=== PATIENT | female | born 1980 | race Caucasian/White ===

== ENCOUNTER 2023-04-10 15:22 | Emergency (ER) | payer OTHER, SELFPAY ==
[2023-04-10 15:29] VITALS: BP 144/69; PULSE 100; RESP 20; TEMP 36.9; O2SAT 99; BMI 29.5
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
[2023-04-10 16:19] LABS: HCG Qualitative Urine* NEGATIVE (NEGATIVE)
== END 2023-04-10 17:46 | disposition home or self-care (01) ==
PROVIDERS: Emergency Provider Emergency Medicine
DX: S16.1XXA Strain of muscle, fascia and tendon at neck level, initial encounter (principal); V53.5XXA Driver of pick-up truck or van injured in collision with car, pick-up truck or van in traffic accident, initial encounter
CPT/HCPCS: 71045; 72040; 73110; 73130; 84703; 99284